=== PATIENT | male | born 1960 | race Caucasian/White ===

== ENCOUNTER 2019-01-03 10:41 | Emergency (ER) | payer MEDICAID, MEDICARE ==
[~2019-01-03] VITALS: Ht 167.6 cm; Wt 64.0 kg
[2019-01-03 10:45] VITALS: BP 152/98
== END 2019-01-03 11:42 | disposition left against medical advice (07) ==
LOC: ER 10:41
DX: M79.10 Myalgia, unspecified site (principal); Z53.21 Procedure and treatment not carried out due to patient leaving prior to being seen by health care provider

== ENCOUNTER 2022-07-02 18:00 | Emergency (ER) | payer MEDICAID, MEDICARE ==
[~2022-07-02] VITALS: Ht 177.8 cm; Wt 79.0 kg
[2022-07-03 04:00] VITALS: BP 135/91
== END 2022-07-03 04:15 | disposition home or self-care (01) ==
LOC: ER 18:00
DX: K94.03 Colostomy malfunction (principal); I10 Essential (primary) hypertension; Z59.00 Homelessness unspecified; Z98.890 Other specified postprocedural states; Z86.59 Personal history of other mental and behavioral disorders
CPT/HCPCS: 71045; 99283; Z7610